=== PATIENT | male | born 1955 | race Caucasian/White ===

== ENCOUNTER 2025-08-10 14:08 | Emergency (ER) | payer MEDICARE ==
[~2025-08-10] VITALS: Ht 170.2 cm; Wt 72.6 kg
[2025-08-10 14:42] VITALS: BP 118/61; TEMP 97
[2025-08-10 14:45] LABS: CREATININE 1.1 mg/dL (0.6-1.3); SODIUM SERUM 138 mmol/L (136-145); UREA NITROGEN, BLOOD 13 mg/dL (7-18)
[2025-08-10 14:51] LABS: PLATELET COUNT (AUTO) 63 K/uL (152-348)
[2025-08-10 14:52] LABS: ASPARTATE AMINOTRANSFERASE 16 U/L (15-37); RED CELL DISTRIBUTION WIDTH 15.6 % (12.1-16.2); TOTAL PROTEIN, SERUM 7.6 g/dL (6.4-8.2)
[2025-08-10 14:55] LABS: RED BLOOD CELL COUNT(AUTO) 2.16 MIL/uL (4.06-5.63)
[2025-08-10 14:57] LABS: WHITE BLOOD COUNT (AUTO) 1.4 K/uL (3.6-10.2)
[2025-08-10 15:03] LABS: *BILIRUBIN,URIN 1+ (NEGATIVE); *BLOOD, URINE NEGATIVE (NEGATIVE); *CLARITY,URINE CLEAR (CLEAR); *COLOR,URINE DARK YELLOW (YELLOW); *KETONES,URINE 1+ (NEGATIVE); *PROTEIN,URINE TRACE (NEGATIVE); *UROBILINOGEN,URINE 0.2 E.U./dl (NORMAL); LEUKOCYTE ESTERASE ,URINE NEGATIVE (NEGATIVE); NITRITE, URINE NEGATIVE (NEGATIVE); UGLUCOSE NEGATIVE (NEGATIVE)
[2025-08-10 15:15] LABS: SQUAMOUS EPITHELIAL CELL,UR FEW /HPF (NONE SEEN)
[2025-08-10 15:26] LABS: LYMPHOCYTES % (MANUAL) 82 % (20-40); MONOCYTES % (MANUAL) 4 % (2-10); NEUTROPHILS % (MANUAL) 14 % (42-75); PLATELET ESTIMATE DECREASED
[2025-08-10] MEDS ORDERED: MULT-225 PO (15:59)
[2025-08-10] MEDS ORDERED: PANT40TA49 PO (15:59)
[2025-08-10] MEDS ORDERED: GABA-532 PO (15:59)
[2025-08-10] MEDS ORDERED: DONE10TA44 PO (15:59)
[2025-08-10] MEDS ORDERED: LORA-259 PO (15:59)
[2025-08-10] MEDS ORDERED: IBAN150T21 PO (15:59)
[2025-08-10] MEDS ORDERED: TOPI50TA PO (15:59)
[2025-08-10] MEDS ORDERED: ESCI10TA PO (15:59)
[2025-08-10] MEDS ORDERED: TRAZ-182 PO (15:59)
[2025-08-10] MEDS ORDERED: FOLI0.4T6 PO (15:59)
[2025-08-10] MEDS: IV NORMAL SALINE 1000 ML BAG IV ONE (16:00)
[2025-08-10] MEDS ORDERED: CEFEPIME (MAXEPIME) 1 G in IV DEXTROSE 5% 50 ML IV ONE (16:00)
[2025-08-10] MEDS: VANCOMYCIN IV 1,000 MG in IV DEXTROSE 5% 250 ML IV ONE (16:00)
[2025-08-10 16:23] LABS: LACTIC ACID 2.2 mmol/L (0.4-2.0)
[2025-08-10] MEDS ORDERED: VANCOMYCIN IV 200 ML ONE (17:10)
[2025-08-10 18:08] VITALS: BP 101/71; O2SAT 95
== END 2025-08-10 18:09 | disposition left against medical advice (07) ==
LOC: EDBD 14:08 → ER 14:08
DX: D61.818 Other pancytopenia (principal); D50.9 Iron deficiency anemia, unspecified; D84.9 Immunodeficiency, unspecified; K02.9 Dental caries, unspecified; K04.7 Periapical abscess without sinus; Z59.71 Insufficient health insurance coverage; Z79.899 Other long term (current) drug therapy
CPT/HCPCS: 36415; 70030-TC; 71045; 83605; 84484; 86850; 86900; 86901; 87040; A4606; A4663; J3373